=== PATIENT | female | born 1975 | race Two or more races ===

== ENCOUNTER 2024-04-01 14:16 | Inpatient (IN) | payer OTHER ==
[~2024-04-01] VITALS: Ht 160 cm; Wt 72.3 kg
[2024-04-01 15:33] LABS: BASOPHILS % (AUTO) 0.4 % (0.0-2.0); EOSINOPHILS % (AUTO) 0.5 % (1.0-6.0); HEMATOCRIT 31.3 % (36-46); HEMOGLOBIN 10.2 g/dL (12.0-16.0); LYMPHOCYTES # (AUTO) 1.2 K/uL (1.0-4.8); MEAN CORPUSCULAR HEMOGLOBIN 30.7 pg (26.0-34.0); MEAN CORPUSCULAR HGB CONC 32.7 G/dL (31.0-37.0); MEAN CORPUSCULAR VOLUME 94 fL (80-100); MONOCYTES # (AUTO) 0.5 K/uL (0.1-1.0); MONOCYTES % (AUTO) 7.9 % (2.0-9.0); NEUTROPHILS # (AUTO) 4.1 K/uL (1.8-7.7); NEUTROPHILS % (AUTO) 70.2 % (40.0-70.0); PLATELET COUNT (AUTO) 219 K/uL (150-450); RED BLOOD CELL COUNT(AUTO) 3.33 MIL/uL (4.00-5.20); RED CELL DISTRIBUTION WIDTH 15.4 % (11.5-14.5); WHITE BLOOD COUNT (AUTO) 5.8 K/uL (4.5-11.0)
[2024-04-01 15:41] LABS: PH,URINE DRUG SCREEN 6.5 (5.0-8.0)
[2024-04-01 15:48] LABS: ANION GAP 8 mmol/L (8-16); CARBON DIOXIDE 24 mmol/L (22-29); CHLORIDE 104 mmol/L (98-107); CREATININE 0.66 mg/dL (0.60-1.30); GLOMERULAR FILTR. RATE CALC > 60 mL/min (>60); GLUCOSE,RANDOM 96 mg/dL (70-110); POTASSIUM 4.3 mmol/L (3.5-5.1); SODIUM SERUM 136 mmol/L (136-145); UREA NITROGEN, BLOOD 19 mg/dL (7-18)
[2024-04-01 15:53] LABS: ALCOHOL, URINE DRUG SCREEN NEGATIVE (NEGATIVE); BARBITURATE SCREEN, URINE NEGATIVE (NEGATIVE); BENZODIAZEPINES SCREEN,URINE NEGATIVE (NEGATIVE); CANNABINOID SCREEN,URINE NEGATIVE (NEGATIVE); COCAINE SCREEN,URINE NEGATIVE (NEGATIVE); METHADONE SCREEN, URINE NEGATIVE (NEGATIVE); OPIATE SCREEN,URINE NEGATIVE (NEGATIVE); PHENCYCLIDINE SCREEN,URINE NEGATIVE (NEGATIVE)
[2024-04-01 15:54] LABS: ALCOHOL, BLOOD (SERUM) < 3 mg/dL (0-10)
[2024-04-01] MEDS ORDERED: ATEN-73 PO (15:59)
[2024-04-01] MEDS ORDERED: CEFD300C18 PO (15:59)
[2024-04-01] MEDS ORDERED: APIX5TAB PO (15:59)
[2024-04-01] MEDS ORDERED: CARB100T12 PO (15:59)
[2024-04-01] MEDS ORDERED: ACET-2247 PO (15:59)
[2024-04-01] MEDS ORDERED: LEVE500S33 PO (15:59)
[2024-04-01] MEDS ORDERED: ALBU18HF12 IH (15:59)
[2024-04-01 16:02] LABS: AMPHET/METH SCREEN,URINE NEGATIVE (NEGATIVE)
[2024-04-01] MEDS ORDERED: LEVE250T81 PO (16:08)
[2024-04-01] MEDS ORDERED: MAGNESIUM HYDROXIDE SUSPENSION 30 ML UDCUP PO PRN (16:15)
[2024-04-01 16:51] LABS: APPEARANCE,URINE CLEAR (CLEAR); BILIRUBIN,URINE NEGATIVE (NEGATIVE); COLOR,URINE LIGHT YELLOW (YELLOW); GLUCOSE, URINE (UA) NEGATIVE (NEGATIVE); KETONES,URINE NEGATIVE (NEGATIVE); LEUKOCYTE ESTERASE ,URINE NEGATIVE (NEGATIVE); NITRATE,URINE NEGATIVE (NEGATIVE); OCCULT BLOOD,URINE MODERATE (NEGATIVE); PH,URINE 6.5 (5.0-8.0); PROTEIN,URINE NEGATIVE (NEGATIVE); SPECIFIC GRAVITIY, URINE 1.016 (1.003-1.030); UROBILINOGEN,URINE <=1.0 mg/dL (<=1.0)
[2024-04-01 17:06] LABS: BACTERIA,URINE None Seen /HPF (None Seen); RBC,URINE 0-2 /HPF (0-2); WBC,URINE None Seen /HPF (0-5)
[2024-04-01] MEDS: ACETAMINOPHEN 325 MG TABLET PO PRN (18:07)
[2024-04-01] MEDS: LevETIRAcetam 250 MG TABLET PO SCH (20:27)
[2024-04-01 21:00] VITALS: BP 106/61; PULSE 65; RESP 20; TEMP 98.3; O2SAT 100
[2024-04-01] MEDS: HEPARIN SODIUM,PORCINE 5,000 UNITS/ML VIAL SQ SCH (21:34)
[2024-04-02 04:39] VITALS: BP 129/73; PULSE 52; RESP 20; TEMP 97.7; O2SAT 100
[2024-04-02] MEDS: ATENOLOL 25 MG TABLET PO SCH (08:49)
[2024-04-02] MEDS: FAMOTIDINE 20 MG TABLET PO SCH (08:49)
[2024-04-02] MEDS ORDERED: ALBUTEROL SULFATE HFA 90 MCG/PUFF 8 GM INHALER IH PRN (11:15)
[2024-04-02] MEDS: ACETAMINOPHEN 325 MG TABLET PO PRN (12:53)
[2024-04-02] MEDS: PHENYTOIN SODIUM 1,000 MG in SODIUM CHLORIDE 0.9% 150 ML IV ONE (12:53)
[2024-04-02] MEDS: APIXABAN 5 MG TABLET PO SCH (12:53)
[2024-04-02] MEDS ORDERED: SODIUM CHLORIDE 0.9% 250 ML IV ONE (12:56)
[2024-04-02 20:00] VITALS: BP 109/69; PULSE 64; RESP 18; TEMP 98; O2SAT 99
[2024-04-02] MEDS: PHENYTOIN SODIUM 100 MG ER CAPSULE PO ONE (21:03)
[2024-04-02] MEDS: LORazepam 2 MG/ML VIAL IVP PRN (23:03)
[2024-04-03] MEDS: PHENYTOIN SODIUM 100 MG ER CAPSULE PO SCH (01:16)
[2024-04-03 05:40] VITALS: BP 105/71; PULSE 61; RESP 19; TEMP 97.8; O2SAT 98
[2024-04-03 08:19] VITALS: BP 98/70; PULSE 54; RESP 19; TEMP 97.7; O2SAT 98
[2024-04-03] MEDS: ATENOLOL 25 MG TABLET PO SCH (08:31)
[2024-04-03] MEDS ORDERED: PHEN100C10 PO (14:02)
[2024-04-03] MEDS ORDERED: PHENYTOIN SODIUM 100 MG ER CAPSULE PO SCH (21:00)
== END 2024-04-03 20:42 | DRG 101 ==
LOC: EMS 14:16 → EDH 16:04 → 6S 20:42
PROVIDERS: ADMIT Internal Medicine; ATTEND Internal Medicine
DX: G40.909 Epilepsy, unspecified, not intractable, without status epilepticus (principal); F33.2 Major depressive disorder, recurrent severe without psychotic features; F15.90 Other stimulant use, unspecified, uncomplicated; D64.9 Anemia, unspecified; F41.9 Anxiety disorder, unspecified; I10 Essential (primary) hypertension; Z79.01 Long term (current) use of anticoagulants; Z79.899 Other long term (current) drug therapy; Z86.711 Personal history of pulmonary embolism; Z86.718 Personal history of other venous thrombosis and embolism
CPT/HCPCS: 80048; 80185; 80307; 81001; 85025; 99285; G0480; J1165; J1644; J2060; J7050